=== PATIENT | female | born 1985 | race Caucasian/White ===

== ENCOUNTER → 2018-03-24 07:56 | Outpatient (CLI) | payer BC, SELFPAY ==
[2018-03-24 08:19] LABS: Basophils # 0.1 K/mm3 (0-0.2); Basophils % 1.3 % (0.1-2.0); Eosinophils # 0.7 K/mm3 (0.0-0.4); Eosinophils % 9.1 % (0.1-12.0); Hematocrit 49.1 % (37.0-47.0); Lymphocytes # 1.8 K/mm3 (0.7-4.5); Lymphocytes % 23.5 % (10-50); Mean Corpuscular HGB Conc 32.6 g/dL (31.8-35.4); Mean Corpuscular Hemoglobin 28.6 pg (27.0-31.2); Mean Corpuscular Volume 87.7 fl (81-99); Mean Platelet Volume 7.3 fl (7.4-10.4); Monocytes # 0.4 K/mm3 (0.1-1.0); Neutrophils # 4.7 K/mm3 (1.8-7.8); Platelet Count 270 K/mm3 (142-424); Red Cell Distribution Width 13.8 % (11.5-17.5); White Blood Count 7.7 K/mm3 (4.8-10.8)
[2018-03-24 13:05] LABS: Alanine Aminotransferase 34 U/L (12-78); Albumin Level 3.7 gm/dL (3.4-5.0); Albumin/Globulin Ratio 1.1 (1.1-1.8); Alkaline Phosphatase 85 U/L (46-116); Anion Gap 14.6 mEq/L (5-15); Aspartate Amino Transferase 19 U/L (15-37); Bilirubin,Total 0.4 mg/dL (0.2-1.0); Blood Urea Nitrogen 11 mg/dL (7-18); Carbon Dioxide 25 mmol/L (21.0-32.0); Chloride 105 mmol/L (98-107); Chol/HDL Ratio 2.5 (1-3.5); Cholesterol 158 mg/dL (140-200); Creatinine,Serum 0.84 mg/dL (0.55-1.02); Estimated Glomerular Filt Rate 78 ml/min (>60); Free T4 (Free Thyroxine) 1.02 ng/dl (0.76-1.46); GFR (African American) 94 ML/MIN (>60); Globulin 3.5 gm/dl (1.3-3.2); Glucose 98 mg/dL (74-106); HDL Cholesterol 63 mg/dL (29-89); LDL Cholesterol 87 mg/dL (0-130); Potassium 4.6 mmoL/L (3.5-5.1); Sodium 140 mmol/L (136-145); Thyroid Stimulating Hormone 0.51 uIU/ml (0.358-3.740); Total Protein,Serum 7.2 gm/dL (6.4-8.2); Triglycerides 41 mg/dL (30-200); VLDL Cholesterol 8 mg/dL (0-40)
[2018-03-25 14:04] LABS: Vitamin D 25 Hydroxy 20.2 ng/mL (30.0-100.0)
[2018-03-27 13:39] LABS: Vitamin B6 20.8 ug/L (2.0-32.8)
== END ==
PROVIDERS: Visit Provider Nurse Practitioner Family
DX: R53.83 Other fatigue (principal); R25.2 Cramp and spasm
CPT/HCPCS: 36415; 80053; 80061; 82652; 84207; 84425; 84439; 84443; 85025

== ENCOUNTER → 2018-08-08 13:48 | Outpatient (CLI) | payer OTHER, SELFPAY ==
--- NOTE | 2018-08-08 13:53 | NVE_ITS ---
Venous Exam Indications: 729.5 Pain in limb. IMPRESSIONS 1. There is no evidence of significant Reflux. 2. No evidence of deep or superficial vein thrombosis involving the right lower extremity Right lower extremity venous duplex evaluation. Doppler flow study including spectral analysis, color and dahl scale imaging. Location: Vascular laboratory. Patient status: Outpatient. CRITICAL FINDINGS - Reported to: CHRISTIAN GILBERT - Read back and verified. - 08/08/18 Tables: Venous flow and imaging: + +-------+ + Location Overall Flow properties + +-------+ + Right common femoral Patent Normal phasicity; spontaneous; normal augmentation; compressible + +-------+ + Right saphenofemoral junction Patent Compressible + +-------+ + Right profunda femoral Patent Compressible + +-------+ + Right femoral Patent Normal phasicity; spontaneous; normal augmentation; compressible + +-------+ + Right greater saphenous Patent Normal phasicity; spontaneous; normal augmentation; compressible + +-------+ + Right popliteal Patent Normal phasicity; spontaneous; normal augmentation; compressible + +-------+ + Right posterior tibial Patent Compressible + +-------+ + Right peroneal Patent Compressible + +-------+ + Right gastrocnemius Patent Compressible + +-------+ + Right soleal Patent Compressible + +-------+ + (Report amended ) Electronically signed by: Dima Mejia [id number]
--- NOTE | 2018-08-08 13:56 | XR_ITS ---
XR hip BI w PEL1V HISTORY: Bilateral hip pain ITS.REASON: hip pain ORDERING PHYSICIAN: Ronald Hooper MD PATIENT AGE: 33 years COMPARISON: None FINDINGS: No fracture or dislocation is evident. No significant degenerative change. The SI joints and symphysis pubis per normal. No lytic or blastic change. Unremarkable soft tissues. There is an IUD seen projecting just above the symphysis pubis. IMPRESSION: Negative bilateral hips
--- NOTE | 2018-08-08 13:56 | XR_ITS ---
EXAM: XR lumbar spine min 4V HISTORY: ITS.REASON: back pain ORDERING PHYSICIAN: Ronald Hooper MD PATIENT AGE: 33 years COMPARISON: Lumbar spine films 07/15/2015 FINDINGS: Normal alignment. There is minor disc space narrowing at L5-S1 level. There also is minor minor anterior ossific spurring at the T12- L1 level. There is no pars defect. There are minor hypertrophic facet changes at L5-S1 level. IMPRESSION: Minor degenerative changes lower lumbar spine showing only slight progression from the previous study 2016
== END ==
PROVIDERS: PCP Emergency Medicine; Visit Provider Emergency Medicine
DX: M79.89 Other specified soft tissue disorders (principal); M25.559 Pain in unspecified hip; M54.9 Dorsalgia, unspecified
CPT/HCPCS: 72110; 73521; 93971

== ENCOUNTER → 2020-01-06 17:36 | Outpatient (CLI) | payer OTHER, SELFPAY ==
[2020-01-06 17:53] LABS: Basophils # 0.1 K/mm3 (0-0.2); Basophils % 0.6 % (0.1-2.0); Eosinophils # 0.5 K/mm3 (0.0-0.4); Eosinophils % 5.3 % (0.1-12.0); Lymphocytes # 2.7 K/mm3 (0.7-4.5); Lymphocytes % 27.3 % (10-50); Mean Corpuscular HGB Conc 32.1 g/dL (31.8-35.4); Mean Corpuscular Hemoglobin 27.9 pg (27.0-31.2); Mean Corpuscular Volume 86.8 fl (81-99); Mean Platelet Volume 9.1 fl (7.4-10.4); Monocytes # 0.6 K/mm3 (0.1-1.0); Monocytes % 6.1 % (1.7-9.3); Neutrophils # 6.1 K/mm3 (1.8-7.8); Neutrophils % 60.7 % (37.0-80.0); Platelet Count 369 K/mm3 (142-424); Red Blood Count 6.11 M/mm3 (4.20-5.40); Red Cell Distribution Width 13.7 % (11.5-17.5)
[2020-01-06 17:58] LABS: Alanine Aminotransferase 20 U/L (12-78); Albumin Level 4.4 g/dl (3.5-5.0); Albumin/Globulin Ratio 1.4 (1.1-1.8); Alkaline Phosphatase 125 U/L (38-126); Anion Gap 13.8 mEq/L (5-15); Aspartate Amino Transferase 28 U/L (14-36); Bilirubin,Total 0.5 mg/dl (0.2-1.3); Blood Urea Nitrogen 8 mg/dl (7-17); Calcium 10.1 mg/dl (8.4-10.2); Carbon Dioxide 25 mmol/L (22.0-30.0); Chloride 108 mmol/L (98-107); Chol/HDL Ratio 3.6 (1-3.5); Cholesterol 154 mg/dl (140-200); Estimated Glomerular Filt Rate 71 ml/min (>60); GFR (African American) 86 ML/MIN (>60); Globulin 3.1 g/dL (1.3-3.2); Glucose 101 mg/dl (74-100); HDL Cholesterol 43 mg/dl (40-60); Potassium 4.8 mmoL/L (3.5-5.1); Sodium 142 mmol/L (136-145); Total Protein,Serum 7.5 g/dl (6.3-8.2); Triglycerides 90 mg/dl (30-150); VLDL Cholesterol 18 mg/dL (0-40)
[2020-01-06 18:09] LABS: Direct LDL Cholesterol 95.94 mg/dL (100-129)
[2020-01-06 18:16] LABS: 25-OH Vitamin D, Total 18.7 ng/mL (30-100)
[2020-01-06 18:30] LABS: Thyroid Stimulating Hormone 0.25 uIU/mL (0.465-4.68)
[2020-01-08 08:14] LABS: Hep A Ab, IgM Negative (Negative); Hep A Ab, Total Positive (Negative); Hep B Core Ab, Total Negative (Negative)
[2020-01-08 10:22] LABS: Hep B Surface Ab, Qual Reactive (.); Hepatitis C Antibody >11.0 s/co ratio (0.0-0.9)
== END ==
PROVIDERS: Visit Provider Emergency Medicine
DX: L30.9 Dermatitis, unspecified (principal); E66.9 Obesity, unspecified; R53.83 Other fatigue; E55.9 Vitamin D deficiency, unspecified; R76.8 Other specified abnormal immunological findings in serum
CPT/HCPCS: 80053; 80061; 82306; 84439; 84443; 85025; 86704; 86706; 86708; 87380; 87522

== ENCOUNTER → 2020-02-10 14:18 | Outpatient (CLI) | payer OTHER, SELFPAY ==
[2020-02-10 14:23] LABS: Adenovirus F 40/41, stool Not Detected (NotDetected); Astrovirus Not Detected (NotDetected); Campylobacter Not Detected (NotDetected); Clostridium Difficile A/B, PCR Not Detected (NotDetected); Cryptosporidium Not Detected (NotDetected); Cyclospora Cayetanesis Not Detected (NotDetected); Entamoeba histolytica Not Detected (NotDetected); Enteroaggregative E coli Not Detected (NotDetected); Enteropathogenic E coli Not Detected (NotDetected); Enterotoxigenic E coli Not Detected (NotDetected); Giardia lamblia Not Detected (NotDetected); Norovirus Not Detected (NotDetected); Plesimonas Shigalloides, PCR Not Detected (NotDetected); Rotavirus A Not Detected (NotDetected); Salmonella, PCR Not Detected (NotDetected); Sapovirus Not Detected (NotDetected); Shiga-like toxin E coli Not Detected (NotDetected); Shigella Enterovasive E coli Not Detected (NotDetected); Vibrio Cholerae Not Detected (NotDetected); Vibrio, PCR Not Detected (NotDetected); Yersinia Entercolitica, PCR Not Detected (NotDetected)
== END ==
PROVIDERS: Visit Provider Nurse Practitioner Family
DX: R10.84 Generalized abdominal pain (principal); R19.7 Diarrhea, unspecified
CPT/HCPCS: 87506

== ENCOUNTER → 2020-02-27 12:21 | Outpatient (CLI) | payer OTHER, SELFPAY | PROVIDERS: PCP Emergency Medicine; Visit Provider Emergency Medicine | DX: G47.30 Sleep apnea, unspecified (principal) | CPT/HCPCS: 95806 ==

== ENCOUNTER → 2020-03-09 16:19 | Outpatient (CLI) | payer OTHER, SELFPAY ==
[2020-03-09 16:59] LABS: Basophils # 0.1 K/mm3 (0-0.2); Basophils % 0.7 % (0.1-2.0); Eosinophils # 0.5 K/mm3 (0.0-0.4); Eosinophils % 3.5 % (0.1-12.0); Hematocrit 50.9 % (37.0-47.0); Hemoglobin 17.4 g/dL (12.2-16.2); Lymphocytes # 3.1 K/mm3 (0.7-4.5); Lymphocytes % 21.4 % (10-50); Mean Corpuscular HGB Conc 34.2 g/dL (31.8-35.4); Mean Corpuscular Hemoglobin 28.6 pg (27.0-31.2); Mean Corpuscular Volume 83.8 fl (81-99); Mean Platelet Volume 8.2 fl (7.4-10.4); Monocytes # 0.9 K/mm3 (0.1-1.0); Monocytes % 6.5 % (1.7-9.3); Neutrophils # 9.7 K/mm3 (1.8-7.8); Neutrophils % 67.9 % (37.0-80.0); Platelet Count 335 K/mm3 (142-424); Red Blood Count 6.07 M/mm3 (4.20-5.40); Red Cell Distribution Width 14.9 % (11.5-17.5); White Blood Count 14.2 K/mm3 (4.8-10.8)
[2020-03-14 20:53] LABS: Carbon Monoxide, Whole Blood 4.3 % (0.0-3.6)
== END ==
PROVIDERS: PCP Emergency Medicine; Visit Provider Internal Medicine Medical Oncology
DX: D45 Polycythemia vera
CPT/HCPCS: 36415; 82375; 85025

== ENCOUNTER → 2020-05-20 08:59 | Outpatient (CLI) | payer OTHER, SELFPAY ==
--- NOTE | 2020-05-20 09:04 | US_ITS ---
PROCEDURE: US ABDOMEN LIMITED CLINICAL INDICATION: ABD PAIN Right upper quadrant pain with nausea COMPARISON: No exams were available for comparison FINDINGS: PANCREAS: Unremarkable. No obvious mass or abnormal fluid collection. No ductal dilatation LIVER: No focal liver lesions demonstrated. Homogeneous echogenicity. No intrahepatic biliary ductal dilatation evident. There is appropriate direction of blood flow within a non dilated portal vein RIGHT KIDNEY: Unremarkable. Normal size and echogenicity. No hydronephrosis GALLBLADDER: No gallstones, gallbladder wall thickening, pericholecystic fluid, or biliary dilatation. IMPRESSION: Unremarkable limited abdominal ultrasound as detailed above disc Dictated by: Dima Mejia MD 05/20/2020 17:21 Dima Mejia MD in [facility] 05/20/2020 17:21
[2020-05-20 10:27] LABS: Basophils # 0.1 K/mm3 (0-0.2); Basophils % 0.9 % (0.1-2.0); Eosinophils # 0.4 K/mm3 (0.0-0.4); Eosinophils % 3.1 % (0.1-12.0); Hematocrit 53.2 % (37.0-47.0); Hemoglobin 16.8 g/dL (12.2-16.2); Lymphocytes # 2.6 K/mm3 (0.7-4.5); Mean Corpuscular HGB Conc 31.7 g/dL (31.8-35.4); Mean Corpuscular Hemoglobin 27.7 pg (27.0-31.2); Mean Corpuscular Volume 87.4 fl (81-99); Monocytes # 0.6 K/mm3 (0.1-1.0); Monocytes % 5.1 % (1.7-9.3); Neutrophils # 8.8 K/mm3 (1.8-7.8); Platelet Count 303 K/mm3 (142-424); Red Blood Count 6.08 M/mm3 (4.20-5.40); Red Cell Distribution Width 14.5 % (11.5-17.5); White Blood Count 12.5 K/mm3 (4.8-10.8)
== END ==
PROVIDERS: PCP Nurse Practitioner Family; Visit Provider Nurse Practitioner Family
DX: R10.10 Upper abdominal pain, unspecified (principal)
CPT/HCPCS: 36415; 76705; 85025

== ENCOUNTER → 2023-01-15 16:29 | Outpatient (CLI) | payer BC, SELFPAY | PROVIDERS: PCP Nurse Practitioner Family; Visit Provider Nurse Practitioner Obstetrics & Gynecology | DX: N39.0 Urinary tract infection, site not specified (principal); B96.29 Other Escherichia coli [E. coli] as the cause of diseases classified elsewhere; B96.4 Proteus (mirabilis) (morganii) as the cause of diseases classified elsewhere | CPT/HCPCS: 87086 ==

== ENCOUNTER → 2023-01-23 14:27 | Outpatient (CLI) | payer BC, SELFPAY ==
--- NOTE | 2023-01-23 14:28 | US_ITS ---
PROCEDURE INFORMATION: Exam: US Right Breast, Complete US Left Breast, Complete Exam date and time: 01/23/2023 2:45 PM Age: 37 years old Clinical indication: Swollen lymph nodes under arms TECHNIQUE: Imaging protocol: Complete ultrasound of all four quadrants of the right breast and the retroareolar regions, including ultrasound of the axilla when performed. Complete ultrasound of all four quadrants of the left breast and the retroareolar regions, including ultrasound of the axilla when performed. COMPARISON: No relevant prior studies available. FINDINGS: Breast: No solid or cystic lesions. Other findings: Sonographic images of both breasts including the retroareolar regions, all 4 quadrants and the axilla do not demonstrate any solid or cystic masses. No architectural distortion or acoustical shadowing. No skin thickening or axillary adenopathy. Bilateral fat containing normal appearing axillary lymph nodes are present measuring up to 2.8 cm on the left and 2.7 cm on the right. IMPRESSION: No sonographic evidence of malignancy. Bilateral normal appearing axillary lymph nodes.Further evaluation of a palpable abnormality should be based on clinical grounds regardless of radiographic findings or lack thereof..Annual bilateral mammographic screening is recommended to commence at the age of 40 unless otherwise clinically indicated. ASSESSMENT: BI-RADS Category 1: Negative
== END ==
LOC: RAD 14:27
PROVIDERS: PCP Nurse Practitioner Family; Visit Provider Nurse Practitioner Obstetrics & Gynecology
DX: R59.9 Enlarged lymph nodes, unspecified (principal)
CPT/HCPCS: 76641

== ENCOUNTER 2024-04-14 11:12 | Outpatient (CLI) | payer OTHER, SELFPAY ==
[2024-04-14 12:59] LABS: Triiodothryronine (T3) Uptake 34 % (23.5-40.5)
[2024-04-14 13:00] LABS: Free Thyroxine Index 3.5 ug/dL (5.93-13.13); T4 (Thyroxine) 10.2 ug/dl (5.53-11.0)
[2024-04-14 13:13] LABS: Thyroid Stimulating Hormone 2.91 uIU/mL (0.465-4.68)
[2024-04-15 03:42] LABS: FSH 4.3 mIU/mL (.); LH 3.7 mIU/mL (.); Prolactin 46.9 ng/mL (4.8-33.4)
== END 2024-04-14 23:59 | disposition home or self-care (01) ==
LOC: LAB 11:14
PROVIDERS: PCP Nurse Practitioner Family; Visit Provider Nurse Practitioner Obstetrics & Gynecology
DX: R53.83 Other fatigue (principal); N95.1 Menopausal and female climacteric states
CPT/HCPCS: 36415; 83001; 83002; 84146; 84436; 84443; 84479

== ENCOUNTER 2024-04-29 12:32 | Outpatient (CLI) | payer OTHER, SELFPAY ==
--- NOTE | 2024-04-29 12:32 | MR_ITS ---
FINAL REPORT CLINICAL HISTORY: Pituitary Protocol/ view sella turcica. lactating. abnormal mensural cycles. headache, dizziness and blurred vision. COMPARISON: None FINDINGS: MRI BRAIN WITHOUT AND WITH CONTRAST, ATTENTION PITUITARY FOSSA TECHNIQUE: Multiplanar imaging was performed of the brain with and without Gadolinium infusion. Study included high-resolution imaging of the sella, without and with contrast administration. Diffusion sequences show no signal abnormalities to indicate acute infarct or other process. Imaging of the pituitary fossa shows normal size of the pituitary gland, normal for age and gender. No abnormal signal changes are seen. There is no abnormal enhancement. Pituitary stalk is essentially midline. Optic chiasm is unremarkable. Visualized brain parenchyma displays normal signal without evidence of mass, hemorrhage or edema. No extra-axial abnormal findings are seen. The ventricles and cisterns appear normal. No abnormal enhancing lesions are identified on the post infusion images. Pansinusitis, with air-fluid levels in the maxillary sinuses bilaterally. IMPRESSION: Pituitary normal in size for age and gender. Pansinusitis with air-fluid levels in the bilateral maxillary sinuses. No acute intracranial abnormality. Reviewed, Interpreted and Dictated by Wes Duong MD Transcribed by Lisa Carcamo Authenticated and [facility]
[2024-04-29] MEDS: GADOTERIDOL INJ 10ML SYRINGE 3 ML IV (14:02)
[2024-04-29] MEDS: SODIUM CHLORIDE 0.9% 50ML BAG 25 ML IV (14:02)
[2024-04-29] MEDS: GADOTERIDOL INJ 20ML SYRINGE 20 ML IV (14:03)
== END 2024-04-29 23:59 | disposition home or self-care (01) ==
LOC: RAD 12:32
PROVIDERS: PCP Nurse Practitioner Family; Visit Provider Nurse Practitioner Obstetrics & Gynecology
DX: N64.52 Nipple discharge (principal); R79.89 Other specified abnormal findings of blood chemistry
CPT/HCPCS: 70553; A9576

== ENCOUNTER 2024-08-19 15:39 | Outpatient (CLI) | payer OTHER, SELFPAY ==
--- NOTE | 2024-08-19 15:42 | MM_ITS ---
PROCEDURE INFORMATION: Exam: MG Bilateral Screening 3D Mammography Exam date and time: 08/19/2024 3:46 PM Age: 39 years old Clinical indication: Screening examination TECHNIQUE: Imaging protocol: Bilateral Screening tomosynthesis and 2D mammography including computer-aided detection (CAD) when performed. COMPARISON: 1. US BREAST LT COMPLETE 01/23/2023 2:52 PM 2. US BREAST RT COMPLETE 01/23/2023 2:45 PM FINDINGS: MAMMOGRAPHY: Breast composition: There are scattered areas of fibroglandular density. Mass: None. Architectural distortion: None. Calcifications: No suspicious calcifications. Asymmetric density: None. Skin thickening: None. Axillary adenopathy: None. IMPRESSION: No mammographic evidence of malignancy. Annual screening is recommended unless otherwise clinically indicated. ASSESSMENT: BI-RADS Category 1: Negative.
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
--- OUTSIDE RECORDS SUMMARY | 2024-08-19 15:42 | XMS_ITS | Clinical Summary ---
Author Organization [facility] Address [address] [place] [address] Care Team Providers Care Pipe Connector Name Role Phone Ally Thomas APRN Primary Care Provider [phone] Allergies Active Allergy Reactions Criticality Noted Date Comments Penicillin Other (See Comments) 06/29/2022 Childhood allergy Medications No known medications Active Problems No known active problems Social History Tobacco Use Types Packs/Day Years Used Date Smoking Tobacco: Every Day Cigarettes Smokeless Tobacco: Never Tobacco Cessation:Ready to Q uit: Not Asked; Counseling Given: Not Answered Alcohol Use Standard Drinks/Week Comments Not Currently 0 (1 standard drink = 0.6 oz pur e alcohol) Interpersonal Safety Answer Date Record ed Family or friends hurt you Not on file 03/23 Family or friends insult you Not on file Family or friends threaten you Not on file 0 03/23/2023 Family or friends scream or curse at you Not on file 03/23/2023 Housing Stability Answer Date Recorded Living situation today Not on file Living situation problems Not on file 2023 Food Insecurity Answer Date Recorded Food run out past 12 months Not on file 03/05 Food did not last past 12 months Not on file 03/23/2023 Employment Answer Date Recorded Help finding and keeping a job Not on file 0 03/23/2023 Family and Community Support Answer Cornelius e Recorded Help with Day to Day Activities Not on file 03/23/2023 Feeling Lonely or Isolated Not on file 03/23 Educational Attainment Answer Date Justin rded Speak language other than [place] at home Not on file 03/23/2023 Want help with school or training Not on file 03/23/2023 Depression Answer Date Recorded PHQ-2 Risk Not on file 03/23/2023 Disabilities Answer Date Recorded Difficulty concentrating Not on file 024 Difficulty doing errands alone Not on file 0 03/23/2023 Substance Use Answer Date Recorded Used prescription meds for non-medical reasons N ot on file 03/23/2023 Used illegal drugs past 12 months Not on file 03/23/2023 Comments No Sex and Gender Information Value Date Recorded Sex Assigned at Not on file Legal Sex Female 8:33 PM CDT Gender Identity Not on file Sexual Orientation Not on file Last Filed Vital Signs Vital Sign Reading Time Taken Comments Blood Pressure 148/86 06/29/2022 11:41 PM EDT Pulse 76 06/29/2022 11:41 PM EDT Temperature 36.4 C (97.5 F) 06/29/2022 9:39 PM EDT Respiratory Rate 16 06/29/2022 9:39 PM EDT Oxygen Saturation 98% 06/29/2022 11:41 PM EDT Inhaled Oxygen Concentration - - Weight 108.9 kg (240 lb) 06/29/2022 9:39 PM EDT Height 180.3 cm (5' 11 ) 06/29/2022 9:39 PM EDT Body Mass Index 33.47 06/29/2022 9:39 PM EDT Plan of Treatment Health Maintenance Due Date Last Done Comments Depression Screening (12+) 1996 HIV Screening 06/03/1999 Hepatitis C Screening 2002 DTAP/TDAP/TD VACCINES (1 - Tdap) 06/03/2003 Pneumococcal Vaccine: 0-49 Years (1 of 2 - PCV) 2003 Lipid Panel 2004 Pap Smear 2005 Tobacco Cessation Counseling and Screening (12+) 06/2906/29/2022 COVID-19 VACCINE ( season) 2023 Breast Cancer Screening 2024 Influenza Vaccine (Season Ended) 2024 Insurance BLUE CROSS/BLUE SHIELD Care Teams Pipe Connector Relationship Specialty Start Date End Date Ally Thomas, SIGN OUT CLERK [address] [facility] [place] [address] PCP - General Family Medicine 06/29/22
--- OUTSIDE RECORDS SUMMARY | 2024-08-19 15:42 | XMS_ITS | Referral Summary ---
Author Organization [facility] Address [address] [place] [address] Care Team Providers Care Director Of Optimization Name Role Phone Ally Thomas APRN Primary Care Provider [phone] Allergies Active Allergy Reactions Criticality Noted Date [...] Date Justin rded Speak language other than [place]amanian at home Not on file 03/23/2023 Want [...] 06/29/2022 9:39 PM EDT Plan of Treatment Not on file Insurance CROSS/BLUE SHIELD Care Teams Director Of Optimization Relationship Specialty Start Date End Date Ally Thomas, DRAPERY SEWER HAND [address] [place] [id number] PCP - General Family Medicine 06/29/22
--- OUTSIDE RECORDS SUMMARY | 2024-08-19 15:42 | XMS_ITS | Data Portability ---
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 compliance with treatment. Etiology of panic attack due to stress explained. [id number] Ally Thomas [place] [address] 09/18/2023 15:12:20 09/18/2023 16:18:02 Adult health examination 423085677 Z00.00 Counseled regarding prevention of STD's . Counseled regarding contracept doe options . Advised avoidance of tobacco, alcohol, and drugs . Counseled regarding folic acid supplement ation, calcium needs and prevention of osteoporos is . BSE reviewed and recommende d. Hyperlipid emia screening 838353605 Z13.220 Diabetes m ellitus screening 161589112 Z13.1 Essential hypertension 61704147 I10 DASH diet, exercise and weight loss encouraged . Continue HCTZ. Continue daily use of EARNEST hose. Generalize d anxiety disorder 10362929 F41.1 Patient identified triggers for anxiety and impact of anxious thinking on functionin g. Discussed strategies to regulate symptoms and need for compliance with treatment. Etiology of panic attack due to stress explained. Neck pain 27041878 M54.2 Body mass index 30+ - obesity 630697123 Z68.35 Tobacco de pendence caused by cigarettes 1579237573 2996749 F17.210 Smoking cessation emphasized . Exposure t o carbon monoxide 75894374 Z77.817 [id number] [place] [address] 01/27/2024 16:25:27 01/27/2024 16:49:01 Gastroesophageal reflux disease without esophagitis 343110485 K21.9 Hold semaglutid e for 30 days until I see her back for recheck. Start Pepcid and Protonix. GERD dietary and lifestyle modificati on measures discussed. Avoid acidic foods, remain up right after meals, do no eat large meals. Do not eat later at night. Stop smoking, avoid soda and caffeine. Essential hypertension 05616712 I10 DASH diet, exercise and weight loss encouraged . Continue HCTZ. Continue daily use of EARNEST hose. [id number] [place] [address] 08/12/2024 17:06:39 08/17/2024 08:48:22 Essential hypertension 33524993 I10 DASH diet, exercise and weight loss encouraged . Continue HCTZ. Continue daily use of EARNEST hose. Screening mammography 24 916277 Z12.31 Edema 014319108 R60.9 Earnest hose, weight loss, DASH diet, and elevation encouraged . Acute bronchitis 4834488 2 J20.9 Stop smoking! Use of inhaler and continue OTC daily antihistam ine explained. Primary go narthrosis, bilateral 179379317 M17.0 Abscess of right thigh 7525205940 2398744 L02.415 Start antx and warm compress. Body mass index 30+ - obesity 689794015 E66.9 Health Concerns Section Related Observation LastModified by Organization Detai ls LastModified Time None Recorded Concern Status LastModified by Organization Details LastModified Time None Recorded Advance Directives Directive N: Payers Insurance Date Sequence Insurance Name Policy Number Policy Thomas Covered Member ID Thomas Member ID Guarantor Name 08/17/2024 1 [facility] [id number] Amanda Marvin [id number] Amanda Marvin 01/16/2024 1 [place] [id number] Amanda Marvin [id number] Amanda Marvin 12/12/2022 1 *SELF PAY* [facility] Notes Date Note Type Note Provider Name and Address Organization Details Recorded Time 06/19/2023 text/html Sore ThroatRepor earnest bypatient.[facility] Onset/Timing:date of onset 2 weeks; gradual Duration:started 2 week(s) ago Quality:hoarseness Severity:worsening;mod erate Context:no recent travel; no tick/insect bites; no new medications; no one else with similar symptoms; allergies Alleviating Factors:antihistamines ; decongestants Associated Symptoms:no fever; no swollen glands; no dysphagia; no nausea; no vomiting; no appetite loss; no headache; no choking; no globus sensation; no lethargy; no rash; no abdominal pain; no conjunctivitis; no drooling; no stridor; no stiff neck; no muffled voice;cough;itching throat;dyspnea Ally Thomas APRN [address] [place] [address], [phone], [facility] [employer], [facility]. 06/19/2023 17:58:45 09/13/2023 text/html Emergency Depart ment Follow-Up RecordReported bypatient.Discharge Informationname of ED ([facility]); emergency department discharge date: (Please enter in format 'MM/DD/YYYY') (09/12/2023)Notes:Nelly ent was seen in emergency room after she was awakened by left severe chest pain that radiated down her arms, with anxiety and bilateral occipital headache. Cardiac enzymes and EKG were normal, she had a CT of the chest that ruled out a pulmonary embolus. She was diagnosed with anxiety and was given Ativan prescription. She states she does have significant stress at her workplace right now. She does continue to complain of the occipital headache with tingling of her scalp and weakness of bilateral arms. She did not have any imaging of her brain while in the emergency room. Her father due to ALS. She admits that she needs something non drowsy to address her anxiety symptoms. She has had no further chest pain or palpitations since the emergency room visit. ER records were reviewed. Ally Thomas APRN [address] [place], [address], [place] [facility] [employer]. 09/15/2023 22:08:27 09/18/2023 text/html Annual WellnessReported bypatient.Diet and Nutrition:discussed vitamin and supplement use; discussed portion control; discussed diet improvement Fracture Risk:no history of fractures; no recent explained fracture Physical Activity:exercises on a regular basis; recent increase in physical activity Additional Lifestyle Factors:no alcohol intake;tobacco use; discussed safe sex and STI risk; preconception/concepti on counseling given Depression Risk:no thoughts of suicide Hearing:no loss of hearing Vision:no vision problemsAnxiety/Depres sionReported bypatient.Severity:den ies suicidal ideations; able to maintain relationships; does not interfere with activities of daily living; symptoms improved Duration:acute Context:trouble at work Modifying Factors:social support; selective serotonin reuptake inhibitor (SSRI) Associated Symptoms:denies homicidal ideations; no significant weight gain; no significant weight loss; no visual/auditory hallucinations; no delusions; no shortness of breath;anxiety;HTNHype rtension F/UReported bypatient.Medications: taking medications as directed; no side effects from medication Lifestyle:regular exercise; limits sodium intake Associated Symptoms:no dizziness; no lightheadedness; no chest pain; no shortness of breath; no palpitations; no edema; no calf pain with exertion;headacheNeck PainReported bypatient.Location:rig ht; posterior Quality:spasms Severity:moderate Duration:2 weeks; intermittent episodes lasting: Timing:acute Context:cannot identify Alleviating Factors:nothing helps Aggravating Factors:cannot identify Neurological Complaints:LANDA Other Associated Symptoms:no swelling; no redness; no warmth; no ecchymosis; no grinding; no fever; no chills; no weight loss Previous Surgery:none Prior Imaging:none She has recently had LANDA, was seen in ER for this. No imaging of brain was done in ER. I ordered a MRI of head and her insurance denied it. 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 Ally Thomas APRN [address] [place], [address], [employer]. 09/29/2023 18:42:05 01/27/2024 text/html Reflux/GERDRepor earnest bypatient.Quality:burn ing;pressure Severity:discomfort: 7/10;severe Duration:present <1 month Onset/Timing:gradual onset; daily; occurs at night/while sleeping; occurs immediately after meals Context:smoker PPD; related to acidic foods Alleviating Factors:sitting up Aggravating Factors:lying down;worsened by food; acidic foods Associated Symptoms:no frequent coughing; no globus sensation; no hoarseness;belching/bu rping;nausea;vomiting; regurgitation;heartbur n;bad taste;decreased appetite;postprandial pain;bloating;early satiety;with acid / burning taste;heartburn;dyspep herb;epigastric pain Risk Factorsobesity; tobacco use; nocturnal refluxNotes:Has been taking semaglutide from a weight loss clinic. Dose was recently increased and she developed significant gerd sx. Needs refill on HCTZ. Ally Thomas APRN [address] [place], [address], [employer]. 01/27/2024 17:25:58 08/12/2024 text/html She reports she has a [id number] abscess on medial right thigh near groin that is inflamed and drains pus when squeezed. Ally Thomas APRN [address] [place], [address], [employer]. 08/16/2024 16:42:14 08/12/2024 text/html Hypertension F/UReported bypatient.Medications: taking medications as directed; no side effects from medication Lifestyle:regular exercise; limits sodium intake Associated Symptoms:no dizziness; no lightheadedness; no chest pain; no shortness of breath; no palpitations; no calf pain with exertion; no headache;edema(mild)Kn eeReported bypatient.Location:[facility] Quality:aching; burning; frequent; worsening Severity:moderate Timing:chronic; gradual; swelling developed recurring intermittent Context:atraumatic Alleviating Factors:sitting; ice; limited weight bearing Aggravating Factors:standing; walking; bending/squatting; weight bearing; exercise; downstairs Associated Symptoms:no weakness; no numbness; no tingling; no redness; no warmth; no ecchymosis;swelling;gr inding Previous Surgery:none Previous Injections:none Previous PT:none Work Related:no Working:regular duty Ally Thomas APRN [address] [place] [address], [phone], [facility] [employer] 08/16/2024 16:42:14 OBGyn Episode No OBEpisode recorded.
== END 2024-08-19 23:59 | disposition home or self-care (01) ==
LOC: RAD 15:40
PROVIDERS: PCP Nurse Practitioner Family; Visit Provider Nurse Practitioner Family
DX: Z12.31 Encounter for screening mammogram for malignant neoplasm of breast (principal); R92.323 Mammographic fibroglandular density, bilateral breasts
CPT/HCPCS: 77063; 77067